=== PATIENT | female | born 1990 | race Caucasian/White ===

== ENCOUNTER 2016-10-05 23:45 | Emergency (ER) | payer OTHER ==
[~2016-10-05] VITALS: Ht 154.9 cm; Wt 111.2 kg
[~2016-10-05 23:45] MED LIST: ACETAMINOPHEN500 MG PO; BACTRIM,SEPT1 TABLET PO; BACTROBAN OINTM22 GM TP; CEFDINIR300 MG PO; COMPAZINE10 MG PO; DILAUDID2 MG PO; HYCODAN SYRUP480 ML PO; MECLIZINE HCL25 MG PO; NAPROSYN500 MG PO; NASONEX17 GM BOTH NARES; NEXPLANON68 MG SC; NOHOMEMEDS; OMEPRAZOLE20 M2 PO; PEPCID20 MG PO; PERCOCET 5/31 TABLET PO; PREDNISONE20 MG PO; VALIUM5 MG PO; ZITHROMAX TRI-500 MG PO; ZITHROMAX500 MG PO; ZOFRAN4 MG PO; ZYRTEC10 M2 PO; ZYRTEC5 MG PO
[2016-10-06] MEDS ORDERED: RANITIDINE HCL150 MG PO (00:33)
[2016-10-06 02:10] VITALS: BP 100/75
== END 2016-10-06 02:11 | disposition home or self-care (01) ==
LOC: EME 23:45 → RME 23:45
DX: R51 Headache (principal); G89.29 Other chronic pain; R11.0 Nausea
CPT/HCPCS: 99281; 99284; J1170

== ENCOUNTER 2016-10-25 17:27 | Emergency (ER) | payer OTHER ==
[~2016-10-25] VITALS: Ht 154.9 cm; Wt 11.7 kg
[~2016-10-25 17:27] MED LIST changes: +RANITIDINE HCL150 MG PO
[2016-10-25 20:25] VITALS: BP 120/68
== END 2016-10-25 20:45 | disposition home or self-care (01) ==
LOC: EME 17:27
DX: R51 Headache (principal); J45.909 Unspecified asthma, uncomplicated
CPT/HCPCS: 99281; 99284; J1200; J1885; J2765; J7030

== ENCOUNTER 2016-11-08 03:15 | Emergency (ER) | payer OTHER ==
[~2016-11-08] VITALS: Ht 154.9 cm; Wt 111.6 kg
[2016-11-08 06:46] VITALS: BP 114/93
== END 2016-11-08 06:47 | disposition home or self-care (01) ==
LOC: EME 03:15
DX: R51 Headache (principal); Z87.74 Personal history of (corrected) congenital malformations of heart and circulatory system; R22.0 Localized swelling, mass and lump, head; R11.0 Nausea; Z79.891 Long term (current) use of opiate analgesic
CPT/HCPCS: 99281; 99284; J2270; J2765

== ENCOUNTER 2017-01-29 02:56 | Emergency (ER) | payer OTHER ==
[~2017-01-29] VITALS: Ht 154.9 cm; Wt 112.9 kg
[2017-01-29 04:32] LABS: HEMATOCRIT 41.6 % (36.0-46.0); MCH 28.1 PG (29.0-34.0); MCHC 33.4 G/DL (30.0-36.0); MCV 84.2 FL (83-99); MEAN PLAT.VOLUME 8.6 uM^3 (9.5-12.4); PLATELET COUNT 334 K/uL (156-360); RBC DIS.WIDTH-CV 13.4 % (11.8-14.6); RBC DIS.WIDTH-SD 41.4 % (39-53); RED BLOOD COUNT 4.94 M/uL (3.80-5.20); WHITE BLOOD COUNT 10.9 K/uL (4.1-10.2)
[2017-01-29 04:40] LABS: CHLORIDE 109 mEq/L (99-109); SODIUM 140 mEq/L (136-147)
[2017-01-29 04:42] LABS: GLUCOSE 115 mg/dL (70-99)
[2017-01-29 04:43] LABS: ANION GAP 9 MEQ/L (2-14)
[2017-01-29 04:46] LABS: GFR ESTIMATE (CALCULATED) > 59 mL/min/; UREA NITROGEN (BUN) 10 mg/dL (9-23)
[2017-01-29 04:54] LABS: QUANTITATIVE HCG < 4.0 MIU/ML
[2017-01-29 05:57] VITALS: BP 113/82
== END 2017-01-29 06:16 | disposition home or self-care (01) ==
LOC: EME 02:56
PROVIDERS: Emergency Medicine
DX: R51 Headache (principal); J45.909 Unspecified asthma, uncomplicated
CPT/HCPCS: 70496; 80048; 84702; 85027; 99281; 99285; J0780; J1100; J1200; J7030

== ENCOUNTER 2017-03-27 06:22 | Observation (INO) | payer OTHER ==
[~2017-03-27] VITALS: Ht 154.9 cm; Wt 117.6 kg
[2017-03-27 07:55] LABS: EOSINOPHIL (%) 1.8 % (0-5); EOSINOPHIL COUNT 0.2 K/uL (0-0.3); HEMATOCRIT 42.3 % (36.0-46.0); IMMATURE GRANULOCYTE (%) 0.4 % (0.0-0.7); LYMPHOCYTE COUNT 2.7 K/uL (1.0-2.8); MCH 28.1 PG (29.0-34.0); MCHC 32.9 G/DL (30.0-36.0); MCV 85.6 FL (83-99); MEAN PLAT.VOLUME 8.5 uM^3 (9.5-12.4); MONOCYTE (%) 4.7 % (3-12); MONOCYTE COUNT 0.4 K/uL (0-0.8); PLATELET COUNT 366 K/uL (156-360); RBC DIS.WIDTH-CV 13.7 % (11.8-14.6); RBC DIS.WIDTH-SD 42.6 % (39-53); RED BLOOD COUNT 4.94 M/uL (3.80-5.20); WHITE BLOOD COUNT 9.4 K/uL (4.1-10.2)
[2017-03-27 08:03] LABS: CHLORIDE 107 mEq/L (99-109); POTASSIUM 4.1 mEq/L (3.7-5.4); SODIUM 138 mEq/L (136-147)
[2017-03-27 08:05] LABS: GLUCOSE 99 mg/dL (70-99)
[2017-03-27 08:07] LABS: ANION GAP 8 MEQ/L (2-14); TOTAL BILIRUBIN 0.4 mg/dL (0.0-1.0)
[2017-03-27 08:09] LABS: ALKALINE PHOSPHATASE 117 IU/L (3-129); GFR ESTIMATE (CALCULATED) > 59 mL/min/
[2017-03-27 08:10] LABS: UREA NITROGEN (BUN) 16 mg/dL (9-23)
[2017-03-27 08:12] LABS: LIPASE 19 U/L (1.0-51.0)
[2017-03-27 08:19] LABS: ADD MIUA? YES; BILIRUBIN NEGATIVE; BLOOD NEGATIVE; COLOR YELLOW ((YELLOW)); GLUCOSE (STRIP) NEGATIVE; KETONES NEGATIVE; LEUKOCYTES TRACE; NITRITE NEGATIVE; PROTEIN (STRIP) NEGATIVE; SPECIFIC GRAVITY 1.018 (1.000-1.030); UROBILINOGEN 0.2 MG/DL (0.2-1.0)
[2017-03-27 08:23] LABS: BACTERIA RARE /HPF; EPITHELIAL CELLS 1+ /HPF; INTERNAL CONTROL VALID? YES; MUCUS TRACE /LPF; RED BLOOD CELLS 0-5 /HPF (0-5); UCUL ADDED? NO; WHITE BLOOD CELLS 0-5 /HPF (0-5)
[2017-03-27] MEDS ORDERED: AMITRIPTYLINE H10 MG PO (10:53)
[2017-03-27 15:28] VITALS: BP 100/64
== END 2017-03-27 15:09 | disposition left against medical advice (07) ==
LOC: EME 06:22 → EDOF 12:08
PROVIDERS: Emergency Medicine
DX: R10.13 Epigastric pain (principal); R11.2 Nausea with vomiting, unspecified; K31.84 Gastroparesis; Q27.39 Arteriovenous malformation, other site; J45.909 Unspecified asthma, uncomplicated; Z98.890 Other specified postprocedural states; Z88.8 Allergy status to other drugs, medicaments and biological substances
CPT/HCPCS: 80053; 81003; 83605; 83690; 84703; 85025; 99281; 99285; G0378; J0780; J2270; J2405; J2765; J7030